=== PATIENT | female | born 1985 ===

== ENCOUNTER → 2017-07-23 | Outpatient (CLI) | payer OTHER | END | disposition home or self-care (01) | LOC: RAD 10:59 | DX: N94.89 Other specified conditions associated with female genital organs and menstrual cycle (principal) ==

== ENCOUNTER 2022-11-12 09:50 | Outpatient (CLI) | payer OTHER | END 2022-11-12 11:20 | disposition home or self-care (01) | LOC: SONOGRAMA 09:50 | DX: N93.8 Other specified abnormal uterine and vaginal bleeding (principal) ==